=== PATIENT | male | born 1990 | race American Indian/Alaskan Native ===

== ENCOUNTER 2019-06-26 17:49 | Emergency (ER) | payer SELFPAY ==
[2019-06-26 19:32] VITALS: BP 128/75
--- NOTE | 2019-06-26 20:10 | Emergency Department Report ---
Chief Complaint: Urogenital-Male Stated Complaint: GROIN PAIN Time Seen by Provider: 06/26/19 19:47 - HPI History of Present Illness: is a 29 y/o -[place] male who presents for dysuria and penile or scrotal itching after unprotected sex. There is no fevers ,no chills, no nausea /vomiting ,no hematuria, no abdominal pain. Patient advises he knows his an STD. I have advised patient that he does not have emergency medical condition and he will follow up with [facility] for treatment for sad STD. Patient is leaving at this time in stable condition will follow with health department tomorrow. - Exam Vital Signs: Vital Signs 06/26/19 19:27 Temperature 97.7 F Pulse Rate 79 Respiratory 18 Rate Blood Pressure 128/75 O2 Sat by Pulse 97 Oximetry Physical Exam: Patient is a and O 3 , ambulatory with steady gait. He appears well and nontoxic,and in no acute distress. There is no abdominal pain ,no scrotal pain, or swelling ,no hematuria ,or back pain. MSE screening note: Focused history and physical exam performed. Due to findings this patient does not have and emergency medical condition ED Disposition for MSE Clinical Impression: STD (sexually transmitted disease) Disposition: Z-07 MED SCREENING EXAM-LEFT Is pt being admited?: No Does the pt Need Aspirin: No Condition: Stable Instructions: Sexually Transmitted Diseases (ED) Additional Instructions: follow up with health department [facility] for evaluation and treatment for Sexually Transmitted Disease. Referrals: [facility] Depart [Outside] - 3-5 Days Time of Disposition: 20:12
== END 2019-06-26 20:31 | disposition left against medical advice (07) ==
LOC: ED 17:49
DX: A64 Unspecified sexually transmitted disease (principal)
CPT/HCPCS: 99282